=== PATIENT | female | born 1965 | race Caucasian/White ===

== ENCOUNTER → 2021-02-27 | Outpatient (CLI) | payer BC | LOC: MC.RAD 08:18 | DX: Z12.31 Encounter for screening mammogram for malignant neoplasm of breast (principal) ==

== ENCOUNTER → 2022-03-27 | Outpatient (CLI) | payer BC | LOC: COL.RAD 02-21 10:30 | DX: H50.51 Esophoria (principal); H04.123 Dry eye syndrome of bilateral lacrimal glands; G24.5 Blepharospasm | CPT/HCPCS: A9575 ==

== ENCOUNTER 2023-04-09 20:12 | Emergency (ER) | payer BC ==
[~2023-04-09] VITALS: Ht 167.6 cm; Wt 89.5 kg
[2023-04-09 20:22] VITALS: TEMP 97.8
[2023-04-09 20:59] VITALS: BP 120/80; PULSE 84
== END 2023-04-09 21:04 | disposition home or self-care (01) ==
LOC: COL.ER 20:12
DX: S91.012A Laceration without foreign body, left ankle, initial encounter (principal); W25.XXXA Contact with sharp glass, initial encounter